=== PATIENT | female | born 1970 | race Two or more races ===

== ENCOUNTER 2024-04-17 07:15 | Day surgery (SDC) | payer MEDICAID, SELFPAY ==
[2024-04-16 14:35] VITALS: BMI 29.2
[2024-04-17] VITALS (14 sets, daily range): BP systolic 113–135; BP diastolic 73–89; PULSE 61–74; RESP 9–27; TEMP 36.4–36.7; O2SAT 97–100; BMI 28.8
[2024-04-17] MEDS: fentaNYL CIT INJ 50 mCg/ML AMP 2ML (ASD USE ONLY) IV (09:09)
[2024-04-17] MEDS: MIDAZOLAM INJ 1 MG/ML VIAL 2 ML (ASD USE ONLY) 2 MG IV (09:09)
[2024-04-17] MEDS: DiphenhydrAMINE INJ 50 MG/ML VIAL 25 MG IV (09:09)
[2024-04-17] MEDS: SODIUM CHLORIDE 0.9% 500 ML 500 ML 20 ML IV (09:09)
[2024-04-17] MEDS: SIMETHICONE 40 MG/0.6 ML ORAL SYRINGE PO (09:19)
== END 2024-04-17 11:10 | disposition home or self-care (01) ==
PROVIDERS: PCP Registered Nurse Community Health; Referring Provider Internal Medicine Gastroenterology; Visit Provider Internal Medicine Gastroenterology
PROC: 0DBE8ZX Excision of Large Intestine, Via Natural or Artificial Opening Endoscopic, Diagnostic (ICD-10-PCS; CPT 45380; principal; 2024-04-17 09:45)
PROC: (CPT 43239; 2024-04-17 09:45)
DX: K51.00 Ulcerative (chronic) pancolitis without complications (principal); K63.89 Other specified diseases of intestine; K64.9 Unspecified hemorrhoids; K29.50 Unspecified chronic gastritis without bleeding; K20.90 Esophagitis, unspecified without bleeding; K44.9 Diaphragmatic hernia without obstruction or gangrene; K31.7 Polyp of stomach and duodenum
CPT/HCPCS: 45380; A4649; J1200; J2250; J3010; J7040; A9270